=== PATIENT | female | born 1970 | race Caucasian/White ===

== ENCOUNTER 2017-01-24 10:55 | Emergency (ER) | payer MEDICAID ==
[~2017-01-24] VITALS: Ht 154.9 cm; Wt 73.0 kg
[~2017-01-24 10:55] MED LIST: AMLO2.5T2 PO; ASPI-1073 PO; ATOR10TA PO; HYDR25TA PO; LISI-604 PO; PHENERGAN
[2017-01-24 13:27] LABS: BASOPHILS % 0.5 % (0.0-2.0); EOSINOPHILS % 1.9 % (0.0-5.0); HEMATOCRIT. 39.9 % (36.0-48.0); HEMOGLOBIN. 13.6 g/dL (12.0-16.0); LYMPHOCYTES % 23.6 % (20.0-50.0); MEAN CORPUSCULAR HEMOGLOBIN 29.1 pg (28.0-32.0); MEAN CORPUSCULAR HGB CONC 34.1 g/dL (31.0-37.0); MEAN CORPUSCULAR VOLUME 85.6 fL (81.0-99.0); MEAN PLATELET VOLUME 8.9 fl (7.4-10.4); MONOCYTES % 5.1 % (2.0-8.0); NEUTROPHILS % 68.9 % (40.0-76.0); PLATELET 245 x1000/uL (130-400); RED BLOOD CELL COUNT 4.67 mill/uL (4.2-5.4); RED CELL DISTRIBUTION WIDTH 14.3 % (11.6-14.6); WHITE BLOOD COUNT 6.6 x1000/uL (4.5-11.0)
[2017-01-24 13:28] LABS: CHLORIDE 100 mEq/L (98-107)
[2017-01-24] MEDS ORDERED: ASPIRIN 81MG TABLET PO ONE (13:30)
[2017-01-24] MEDS ORDERED: MORPHINE SULFATE 4 MG/ML CPJ (NOT FOR IM USE) IV ONE ×2 (13:38→13:45)
[2017-01-24] MEDS ORDERED: ONDANSETRON HCL 4MG/2ML VIAL ONE (13:39)
[2017-01-24 13:40] LABS: ALANINE AMINOTRANSFERASE 41 IU/L (13-61); ALBUMIN 3.5 g/dL (3.4-5.0); ANION GAP 11; CALCIUM 8.9 mg/dL (8.5-10.1); CARBON DIOXIDE 31 mEq/L (21-32); ETHANOL BLOOD < 10 mg/dL; INDEX HEMOLYSI 1 (1-3); INDEX ICTERIC 1 (1-4); INDEX LIPEMIC 1 (1-3); UREA NITROGEN BLOOD 9 mg/dL (7-21); eGFR > 60 mL/min (>60)
[2017-01-24 13:42] LABS: NT PRO B-TYPE NATRIURETIC PEP 30 pg/mL (5-125); TROPONIN I < 0.02 ng/mL (0.00-0.04)
[2017-01-24] MEDS ORDERED: ONDANSETRON HCL 4MG/2ML VIAL IV ONE (13:45)
[2017-01-24 13:49] LABS: D-DIMER < 0.19 mg/L FEU (<0.50); PROTHROMBIN TIME 10.2 sec
[2017-01-24 14:23] LABS: HCG SCREEN NEGATIVE
[2017-01-24 16:38] VITALS: BP 160/79
== END 2017-01-24 17:12 | disposition home or self-care (01) ==
LOC: ER 13:27
DX: R51 Headache (principal); I10 Essential (primary) hypertension; Z79.82 Long term (current) use of aspirin; R42 Dizziness and giddiness; H53.8 Other visual disturbances
CPT/HCPCS: 36415; 70450; 71010; 80053; 83880; 84484; 84703; 85025; 85379; 85610; 93005; 96374; 96375; 99285; G0482; J2270; J2405

== ENCOUNTER 2017-03-10 21:11 | Emergency (ER) | payer MEDICAID ==
[~2017-03-10] VITALS: Ht 160 cm; Wt 80.0 kg
[2017-03-10] MEDS ORDERED: LORAZEPAM 1MG TABLET PO ONE (21:45)
[2017-03-10 22:25] LABS: EOSINOPHILS % 3.3 % (0.0-5.0); HEMATOCRIT. 40.7 % (36.0-48.0); HEMOGLOBIN. 13.8 g/dL (12.0-16.0); LYMPHOCYTES % 26.9 % (20.0-50.0); MEAN CORPUSCULAR HEMOGLOBIN 29.1 pg (28.0-32.0); MEAN CORPUSCULAR VOLUME 85.5 fL (81.0-99.0); MEAN PLATELET VOLUME 8.6 fl (7.4-10.4); NEUTROPHILS % 59.8 % (40.0-76.0); PLATELET 241 x1000/uL (130-400); RED BLOOD CELL COUNT 4.76 mill/uL (4.2-5.4); RED CELL DISTRIBUTION WIDTH 13.3 % (11.6-14.6)
[2017-03-10] MEDS ORDERED: CLONIDINE 0.1MG TABLET PO ONE (22:30)
[2017-03-10 22:31] LABS: HCG SCREEN NEGATIVE
[2017-03-10 22:32] LABS: PARTIAL THROMBOPLASTIN TIME 24.5 sec (24.0-34.0); PROTHROMBIN TIME 10.7 sec
[2017-03-10 22:34] LABS: CARBON DIOXIDE 27 mEq/L (21-32); CHLORIDE 106 mEq/L (98-107)
[2017-03-10 22:39] LABS: TROPONIN I < 0.02 ng/mL (0.00-0.04)
[2017-03-10] MEDS ORDERED: POTASSIUM CHLORIDE 20MEQ TABLET SR PO ONE (22:45)
[2017-03-11 01:56] VITALS: BP 127/84
== END 2017-03-11 02:00 | disposition home or self-care (01) ==
LOC: ER 21:17
DX: I10 Essential (primary) hypertension (principal); E87.6 Hypokalemia; Z79.82 Long term (current) use of aspirin
CPT/HCPCS: 36415; 71010; 80048; 84484; 84703; 85025; 85610; 85730; 93005; 99285; Z7610

== ENCOUNTER 2021-08-21 20:49 | Emergency (ER) | payer MEDICAID ==
[~2021-08-21] VITALS: Ht 167.6 cm; Wt 73.0 kg
[~2021-08-21 20:49] MED LIST changes: -LISI-604 PO; +LISI20TA31 PO
[2021-08-21] MEDS ORDERED: ONDANSETRON 4MG ODT PO ONE (23:00)
[2021-08-21] MEDS ORDERED: ACETAMINOPHEN WITH CODEINE 300/30MG TABLET PO ONE (23:00)
[2021-08-22] MEDS ORDERED: KETOROLAC 30MG/ML VIAL IM ONE (01:00)
[2021-08-22] MEDS ORDERED: CYCL10TA7 MT (01:35)
[2021-08-22] MEDS ORDERED: IBUP-2029 MT (01:35)
[2021-08-22 01:57] VITALS: BP 111/85
== END 2021-08-21 23:22 | disposition home or self-care (01) ==
LOC: ER 20:49
DX: S16.1XXA Strain of muscle, fascia and tendon at neck level, initial encounter (principal); M25.511 Pain in right shoulder; V49.49XA Driver injured in collision with other motor vehicles in traffic accident, initial encounter; Y93.89 Activity, other specified; Y92.89 Other specified places as the place of occurrence of the external cause; Y99.8 Other external cause status; E11.9 Type 2 diabetes mellitus without complications; I10 Essential (primary) hypertension; Z79.899 Other long term (current) drug therapy
CPT/HCPCS: 72040; 73030; 81025; 99284; J1885; 96372; Q0162

== ENCOUNTER 2025-08-23 14:16 | Emergency (ER) | payer MEDICAID ==
[~2025-08-23] VITALS: Ht 152.4 cm; Wt 59.0 kg
[~2025-08-23 14:16] MED LIST changes: +CYCL10TA21 MT; +IBUP-1455 MT
[2025-08-23 14:39] VITALS: TEMP 36.7; O2SAT 99
[2025-08-23] MEDS: IBUPROFEN 600MG TABLET PO NR (16:55)
[2025-08-23 17:26] VITALS: BP 124/85; PULSE 69; RESP 14; O2SAT 100
== END 2025-08-23 17:31 | disposition home or self-care (01) ==
LOC: ER 15:36
DX: S93.402A Sprain of unspecified ligament of left ankle, initial encounter (principal); E11.9 Type 2 diabetes mellitus without complications; I10 Essential (primary) hypertension; Z79.899 Other long term (current) drug therapy; X50.1XXA Overexertion from prolonged static or awkward postures, initial encounter; Y93.89 Activity, other specified; Y92.89 Other specified places as the place of occurrence of the external cause; Y99.8 Other external cause status
CPT/HCPCS: 99283; 73610; A6449